=== PATIENT | male | born 1970 | race Caucasian/White ===

== ENCOUNTER 2021-08-18 07:11 | Emergency (ER) | payer SELFPAY ==
[2021-08-18] MEDS ORDERED: ERYTHROMYCIN O3.5 GM OU (08:02)
== END 2021-08-18 08:10 | disposition home or self-care (01) ==
LOC: ER1 07:11
DX: T15.01XA Foreign body in cornea, right eye, initial encounter (principal); I10 Essential (primary) hypertension
CPT/HCPCS: 65220; 99283